=== PATIENT | male | born 1985 | race Caucasian/White ===

== ENCOUNTER 2016-11-27 12:11 | Outpatient (CLI) | payer OTHER | END 2016-11-27 12:12 | disposition home or self-care (01) | DX: M51.37 Other intervertebral disc degeneration, lumbosacral region (principal); M51.27 Other intervertebral disc displacement, lumbosacral region; M47.894 Other spondylosis, thoracic region; M47.896 Other spondylosis, lumbar region; M47.897 Other spondylosis, lumbosacral region ==

== ENCOUNTER 2017-05-23 15:07 | Emergency (ER) | payer OTHER ==
[2017-05-23 15:54] VITALS: BP 128/83
[2017-05-23] MEDS ORDERED: PROPARACAINE 0.5% OPHTH DROPS 15 ML ONE ×3 (16:58→21:39)
[2017-05-23] MEDS ORDERED: ERYTHROMYCIN OPHTH OINT 1 GM TUBE RIGHTEYE STA (17:10)
--- NOTE | 2017-05-23 17:13 | ED Physician Documentation ---
PD HPI HEENT FB - Chief complaint Chief Complaint: Heent - History obtained from History obtained from: Patient - History of Present Illness Timing - onset: Other (He was working under his car and he felt probably a metallic foreign body in the right eye in his having light sensitivity now. He does not have any health problems. He does not wear contacts.) Review of Systems Constitutional: denies: Fever, Chills Eyes: reports: Loss of vision, Decreased vision, Photophobia, Discharge, Irritation Ears: denies: Loss of hearing, Ear pain PD PAST MEDICAL HISTORY - Past Medical History Past Medical History: No - Past Surgical History Past Surgical History: Yes Ortho: Knee replacement - Present Medications Home Medications: Ambulatory Orders Medication Instructions Recorded Confirmed Erythromycin Base [Erythromycin] 1 applic OP 5XD 7 Days oint...g. 05/23/17 Ibuprofen 800 mg PO TID 05/23/17 05/23/17 - Allergies Allergies/Adverse Reactions: Allergies Allergy/AdvReac Type Severity Reaction Status Date / Time No Known Drug Allergies Allergy Verified 05/23/17 15:54 - Social History Does the pt smoke?: Yes Smoking Status: Current every day smoker Does the pt drink ETOH?: Yes ETOH Use: Wine, Beer, Liquor Does the pt have substance abuse?: No - Immunizations Immunizations are current?: Yes - POLST Patient has POLST: No PD ED PE NORMAL - Vitals Vital signs reviewed: Yes - General General: Alert and oriented X 3, No acute distress - HEENT HEENT: PERRL, EOMI, Other (Under the top lid there was a metallic foreign body that was easily removed during examination, on fluorescein examination there was a "skating rink" type pattern of scratches on the superior part of the cornea.) - Neuro Neuro: Alert and oriented X 3, Normal speech - Psych Psych: Normal mood, Normal affect Results - Vitals Vitals: Vital Signs - 24 hr 05/23/17 15:51 Temperature 37.0 C Heart Rate 82 Respiratory 15 Rate Blood Pressure 128/83 H O2 Saturation 97 Oxygen O2 Source Room air Departure - Departure Disposition: 01 Home, Self Care Clinical Impression: Foreign body in conjunctival sac, right eye, initial encounter Corneal abrasion, right Qualifiers: Encounter type: initial encounter Qualified Code(s): S05.01XA - Injury of conjunctiva and corneal abrasion without foreign body, right eye, initial encounter Condition: Good Record reviewed to determine appropriate education?: Yes Instructions: ED Eye Injury Corneal Abrasion Prescriptions: Erythromycin Base [Erythromycin] 1 applic OP 5XD 7 Days oint...g. Comments: Your blood pressure was elevated today on check into the emergency department. This does not mean that you have hypertension, it is a common phenomenon to come to the emergency department and have elevated blood pressure. I recommend that she see your primary care physician within the week to have it rechecked when you are feeling better. Follow-up with your eye doctor in 3 days for recheck.
[2017-05-23] MEDS ORDERED: ERYTHROMYCIN OPHTH OINT 1 GM TUBE ONE (17:19)
== END 2017-05-23 17:17 | disposition home or self-care (01) ==
LOC: ED 15:07
DX: T15.11XA Foreign body in conjunctival sac, right eye, initial encounter (principal); X58.XXXA Exposure to other specified factors, initial encounter; R03.0 Elevated blood-pressure reading, without diagnosis of hypertension; F17.200 Nicotine dependence, unspecified, uncomplicated
CPT/HCPCS: 65205; 99283; J3490

== ENCOUNTER 2017-05-23 19:08 | Emergency (ER) | payer OTHER ==
[2017-05-23 21:20] VITALS: BP 159/105
--- NOTE | 2017-05-23 21:28 | ED Physician Documentation ---
PD HPI OPHTHO - Stated complaint Stated Complaint: RT EYE PX - Chief complaint Chief Complaint: General - History obtained from History obtained from: Patient - History of Present Illness Timing - onset: Today Timing - details: Abrupt onset, Still present, Waxing and waning Location: Left Quality / character: Aching, Sharp Associated symptoms: Redness, Swelling. No: Photophobia, Double vision Contributing factors: FB Review of Systems Eyes: denies: Loss of vision, Decreased vision, Photophobia PD PAST MEDICAL HISTORY - Past Medical History Cardiovascular: None Respiratory: None Neuro: None Endocrine/Autoimmune: None - Past Surgical History Past Surgical History: Yes Ortho: Knee replacement - Present Medications Home Medications: Ambulatory Orders Medication Instructions Recorded Confirmed Erythromycin Base [Erythromycin] 1 applic OP 5XD 7 Days oint...g. 05/23/17 Ibuprofen 800 mg PO TID 05/23/17 05/23/17 - Allergies Allergies/Adverse Reactions: Allergies Allergy/AdvReac Type Severity Reaction Status Date / Time No Known Drug Allergies Allergy Verified 05/23/17 15:54 - Social History Does the pt smoke?: Yes Smoking Status: Current every day smoker Does the pt drink ETOH?: Yes Does the pt have substance abuse?: No - Family History Family history: reports: None - Immunizations Immunizations are current?: Yes - POLST Patient has POLST: No PD ED PE NORMAL - Vitals Vital signs reviewed: Yes - General General: Alert and oriented X 3, No acute distress, Well developed/nourished - HEENT HEENT: PERRL, EOMI PD ED PE EXPANDED - Eyes Eyes: Right eye, Injected conj/sclera. No: Eyelid injury, Eyelid swelling, Conj /sclera FB, Corneal FB Results - Vitals Vitals: Oxygen O2 Source Room air PD MEDICAL DECISION MAKING - ED course Complexity details: reviewed old records (from just earlier today), considered differential (no residual FB seen. Appears to have been removed earlier and just abrasion left. Eye drops help. We discussed latest studies out showing short term use numbing meds are safe and okay if used briefly and with eye protection/treatment. ALso talked about co), d/w patient Departure - Departure Disposition: 01 Home, Self Care Clinical Impression: Corneal abrasion, right Qualifiers: Encounter type: subsequent encounter Qualified Code(s): S05.01XD - Injury of conjunctiva and corneal abrasion without foreign body, right eye, subsequent encounter Condition: Stable Record reviewed to determine appropriate education?: Yes Comments: Continue the prior instructions for the corneal abrasion. Continue the prior antibiotic ointment 3 or 4 times a day. I do not see any more foreign body in the eye at this time. Presume the corneal abrasion is really hurting still. You can use of proparacaine numbing eyedrops as needed for eye discomfort. Do not use them beyond 1-1-1/2 days because if it is still hurting that that point he need to have it rechecked for concern of not healing well. Return sooner for worse despite that. Discharge Date/Time: 05/23/17 21:54
[2017-05-23] MEDS ORDERED: PROPARACAINE 0.5% OPHTH DROPS 15 ML EACHEYE STA (21:29)
== END 2017-05-23 21:54 | disposition home or self-care (01) ==
LOC: ED 19:08
DX: S05.01XA Injury of conjunctiva and corneal abrasion without foreign body, right eye, initial encounter (principal); T15.11XA Foreign body in conjunctival sac, right eye, initial encounter; X58.XXXA Exposure to other specified factors, initial encounter; R03.0 Elevated blood-pressure reading, without diagnosis of hypertension; F17.200 Nicotine dependence, unspecified, uncomplicated
CPT/HCPCS: 65205; 99283; J3490

== ENCOUNTER 2020-11-17 19:55 | Emergency (ER) | payer OTHER ==
[2020-11-17] MEDS ORDERED: oxyCODONE 5 MG TABLET PO STA (20:31)
--- NOTE | 2020-11-17 21:04 | ED Physician Documentation ---
History of Present Illness - Stated complaint Stated Complaint: LT SHOULDER PX - Chief complaint Chief Complaint: Trauma Ext - History obtained from History obtained from: Patient - History of Present Illness Timing: How many hours ago (1) Pain level max: 9 Pain level now: 9 - Additonal information Additional information: 35-year-old male was on a motorized skateboard today when he fell off, landing on the left shoulder and striking the left side of his head on the pavement. No loss of consciousness. No nausea or vomiting. Worse with movement, better with rest. No neck or back pain. Most of the pain is over the left clavicle. Patient is left-handed Review of Systems Ten Systems: 10 systems reviewed and negative Constitutional: denies: Fever, Chills Respiratory: denies: Cough GI: denies: Abdominal Pain, Vomiting, Diarrhea Skin: denies: Rash Musculoskeletal: denies: Neck pain, Back pain Neurologic: denies: Headache PD PAST MEDICAL HISTORY - Past Medical History Cardiovascular: None Respiratory: None Endocrine/Autoimmune: None - Past Surgical History Past Surgical History: Yes Ortho: Knee replacement - Present Medications Home Medications: Ambulatory Orders Medication Instructions Recorded Confirmed Erythromycin Base [Erythromycin] 1 applic OP 5XD 7 Days oint...g. 05/23/17 Ibuprofen 800 mg PO TID 05/23/17 05/23/17 Oxycodone HCl/Acetaminophen 1 - 2 each PO Q6H PRN #14 tablet 11/17/20 [Percocet 5-325 mg Tablet] - Allergies Allergies/Adverse Reactions: Allergies Allergy/AdvReac Type Severity Reaction Status Date / Time No Known Drug Allergies Allergy Verified 11/17/20 20:01 - Social History Does the pt smoke?: Yes Smoking Status: Current every day smoker Does the pt drink ETOH?: Yes Does the pt have substance abuse?: No - Immunizations Immunizations are current?: Yes - POLST Patient has POLST: No PD ED PE NORMAL - Vitals Vital signs reviewed: Yes - General General: Alert and oriented X 3, No acute distress - HEENT HEENT: Moist mucous membranes, Other (Small abrasion and hematoma to the left parietal area. Tenderness to palpation. No palpable fracture) - Neck Neck: Supple, no meningeal sign, No bony TTP - Cardiac Cardiac: RRR, Strong equal pulses - Respiratory Respiratory: No respiratory distress, Clear bilaterally - Abdomen Abdomen: Soft, Non tender, Non distended - Back Back: No spinal TTP - Derm Derm: Warm and dry - Extremities Extremities: Other (Slight abrasion to the left shoulder. Mild tenderness over the glenohumeral joint. Deformity to the midshaft clavicle with palpable fracture. Neurovascular intact including the axillary nerve) - Neuro Neuro: Alert and oriented X 3 Results - Vitals Vitals: Vital Signs - 24 hr 11/17/20 11/17/20 11/17/20 20:01 20:41 21:55 Temperature 36.6 C 36.6 C 37.4 C Heart Rate 94 94 122 H Respiratory 16 16 18 Rate Blood Pressure 145/90 H 145/90 H 145/98 H O2 Saturation 98 98 95 Oxygen O2 Source Room air - Rads (name of study) CT head Radiology: Prelim report reviewed, EMP read contemporaneously, See rad report (no acute abnormality) L clavicle fracture Radiology: Prelim report reviewed, EMP read contemporaneously, See rad report (Acute comminuted and displaced mid to distal left clavicular shaft fracture as above. ) L shoulder xray Radiology: Prelim report reviewed, EMP read contemporaneously, See rad report (Acute comminuted and displaced mid to distal left clavicular shaft fracture as above. ) PD MEDICAL DECISION MAKING - ED course Complexity details: reviewed results, re-evaluated patient, considered differential, d/w patient ED course: Patient with a left midshaft clavicular fracture. Placed in a sling. Pain well controlled. Neurovascular intact including the axillary nerve. No acute findings on head CT or shoulder x-ray. Patient counseled regarding signs and symptoms for which I believe and urgent re-evaluation would be necessary. Patient with good understanding of and agreement to plan and is comfortable going home at this time This document was made in part using voice recognition software. While efforts are made to proofread this document, sound alike and grammatical errors may occur. Departure - Departure Disposition: 01 Home, Self Care Clinical Impression: Closed left clavicular fracture Qualifiers: Encounter type: initial encounter Clavicle location: shaft Fracture alignment: displaced Qualified Code(s): S42.022A - Displaced fracture of shaft of left cla vicle, initial encounter for closed fracture Condition: Good Instructions: ED Fx Clavicle Follow-Up: your,doctor in 3 days [Other] Prescriptions: Oxycodone HCl/Acetaminophen [Percocet 5-325 mg Tablet] 1 - 2 each PO Q6H PRN #14 tablet PRN Reason: pain Comments[place]. [place] Return if you worsen. Continue to stay in the sling to help with the pain and healing until released by your doctor. Do not drink alcohol or drive while on narcotic pain medicine. Note that many narcotic pain relievers also contain tylenol/acetaminophen. Please ensure that your total dose of acetaminophen from all sources does not exceed 3 grams (3000mg) per day. You may constipated on this medication, take a stool softener such as "Colace" twice a day while you are on it. Also recommend a [id number]-bos-[id number] laxative such as senna or MiraLAX any day that you do not have a bowel movement. If you received narcotic pain medication in the emergency department, do not drive or operate machinery for the next 24 hours. Acute depressed left mid to distal clavicular shaft fracture as above. Discharge Date/Time: 11/17/20 21:57
--- NOTE | 2020-11-17 21:06 | XRAY Report ---
PROCEDURE: Clavicle LT INDICATIONS: fall, clavicle pain TECHNIQUE: 2 views of the clavicle were acquired. COMPARISON: None. FINDINGS: Bones: Acute fracture involving mid to distal left clavicular shaft is seen with up to 1.6 cm depress ion and up to 4.1 cm overlapping at fracture site.. No suspicious bony lesions. Soft tissues: No suspicious soft tissue calcifications. IMPRESSION: Acute depressed left mid to distal clavicular shaft fracture as above. Reviewed by: Shawn Weaver MD on 11/17/2020 9:04 PM PDT Approved by: Shawn Weaver MD on 11/17/2020 9:04 PM PDT Station ID: [id number]
--- NOTE | 2020-11-17 21:06 | XRAY Report ---
PROCEDURE: Shoulder 3 View LT INDICATIONS: fall, shoulder pain TECHNIQUE: 3 views of the shoulder were acquired. COMPARISON: None. FINDINGS: Bones: Acute comminuted mid to distal left clavicular shaft fracture is seen with depression and over lapping at clavicular shaft fracture site. No other fracture or dislocation is seen. No suspicious maxx ny lesions. Visualized ribs appear intact. Soft tissues: No suspicious soft tissue calcifications. IMPRESSION: Acute comminuted and displaced mid to distal left clavicular shaft fracture as above. Reviewed by: Shawn Weaver MD on 11/17/2020 9:05 PM PDT Approved by: Shawn Weaver MD on 11/17/2020 9:05 PM PDT Station ID: [id number]
[2020-11-17 21:56] VITALS: BP 145/98
--- NOTE | 2020-11-18 08:13 | CT Report ---
PROCEDURE: HEAD WO INDICATIONS: fall, L parietal head injury TECHNIQUE: Noncontrast 4.5 mm thick angled axial sections acquired from the foramen magnum to the vertex. For r adiation dose reduction, the following was used: automated exposure control, adjustment of mA and/or kV according to patient size. COMPARISON: None. FINDINGS: Image quality: Excellent. CSF spaces: Basal cisterns are patent. No extra-axial fluid collections. Ventricles are normal in size and shape. Brain: No midline shift. No intracranial masses or hemorrhage. Castro-white matter interface is norm al. Skull and face: Calvarium and visualized facial bones are intact, without suspicious lesions. Sinuses: Visualized sinuses and mastoids are clear. IMPRESSION: No CT evidence of acute intracranial pathology. No acute skull fracture. Reviewed by: Shawn Weaver MD on 11/18/2020 8:12 AM PDT Approved by: Shawn Weaver MD on 11/18/2020 8:12 AM PDT Station ID: [id number]
== END 2020-11-17 21:57 | disposition home or self-care (01) ==
LOC: ED 19:55
DX: S42.022A Displaced fracture of shaft of left clavicle, initial encounter for closed fracture (principal); S00.03XA Contusion of scalp, initial encounter; S00.01XA Abrasion of scalp, initial encounter; S40.212A Abrasion of left shoulder, initial encounter; V00.131A Fall from skateboard, initial encounter; Y93.51 Activity, roller skating (inline) and skateboarding; F17.200 Nicotine dependence, unspecified, uncomplicated
CPT/HCPCS: 70450; 73000; 73030; 99284; A9270

== ENCOUNTER 2021-11-04 14:02 | Outpatient (CLI) | payer OTHER ==
[2021-11-04 14:58] VITALS: BP 129/78
--- NOTE | 2021-11-04 14:58 | SLEEP CARE CONSULTATION ---
Information from patient questionnaire entered by Darshana Benito MA. I have reviewed and concur with the information entered by Darshana Benito MA. This document represents the service I personally performed and the decisions made by me, Whit Fontanez ARNP. History of Present Illness Service Date and Time: 11/04/2021 1402 Reason for Visit: New patient (ONSET 08/2012. NO PRIORS) Chief Complaint: reports: Unrefreshed sleep, Snoring, Excessive daytime sleepiness, Observed pauses in breathing, Fatigue, Frequent awakenings at night, Other Date of Onset: 6-10 YEARS Usual bedtime: changing to cable splicer in last couple days Time it takes to fall asleep: 1-2 HOURS Snores at night: Yes Observed to quit breathing while asleep: Yes Number of times waking at night: 2-3 Reasons for waking at night: reports: Bathroom, Other (unknown reasons; jerking awake). denies: Choking, Snoring, Gasping for air Toss, Turn, or Twitch while sleeping: Yes Recalls having dreams: Yes Usually gets out of bed at: 11-12 pm Feels refreshed in the morning: No Morning headache: Yes (1-2 days a week; due to dehydration, goes away with water) Sleepy or fatigued during the day: Yes Ever fallen asleep while driving: Yes (drowsy driving, no accidents; not often) Takes day naps: Yes (weekend kait) Dreams during day naps: No Prior sleep studies: No Additional HPI information: I had the pleasure of seeing JACI CUENCA today regarding the possibility of him having a sleep disorder. His current complaints are excessive daytime sleepiness, fatigue, frequent night awakenings, observed pause in breathing, snoring and unrefreshed sleep. He states he has difficulty getting to sleep. His sleeping partners have told him he snore loudly and frequently. He has also been told that he stops breathing. On days he was going to bed at 9 pm and getting up at 0500. Now just changed to nights where he gets up between 11- 12 pm and goes to sleep around [id number] in the morning. He is still getting used to new schedule. He will wake up several times during sleep for unknown reasons, he will just jolt awake. He states he gets really tired during the day and will nod when sitting at a computer. He states he sleeps with his TV on in his room. This is something he has done for many years since he joined the [employer] and he just uses it for white noise comfort while sleeping. - Parasomnia Symptoms Ever been unable to move upon waking from sleep: Yes (not often; handful of times in past 5 years) Walks in sleep: No Talks in sleep: No Ever acted out dreams in sleep: No Ever felt weak in the knees when startled or emotional: No Bothered by creepy, crawly, restless sensations in legs: Yes (fidgiting in bed) Problems with memory or concentration: Yes (both) Subjective Initial [place] Sleepiness Scale score: 15 (10/2021) Past Medical History Past Medical History: reports: Depression Social History The patient's occupation is a [employer]. Patient is Single and lives in . Have you smoked in the past 12 months: Yes (use smokeless tobacco) Cigarettes per day (20/pack): 20 Years of smokin Quit date: 2017 Smoking Pack Years: 15.0 Alcohol use: No Caffeine use: Yes Caffeine amount and frequency: 1-2 X DAILY Family History Family history of sleep disordered breathing: Yes Family Hx Sleep Apnea: Mother: Snoring, Sleep apnea - Untreated, Father: Snoring, Sleep apnea - Treated Allergies and Home Medications Known drug allergies: No Drug allergies reviewed: Yes Home medication list reviewed: Yes Allergy and home medication list: Allergies No Known Drug Allergies Allergy (Verified 11/17/20 20:01) Medications: Ibuprofen, prn Prozac 20 mg daily Review of Systems Weight gain over past 5 years: 30-40 lbs Cardiovascular: denies: high blood pressure Respiratory: reports: sputum production Gastrointestinal: reports: heartburn, diarrhea Urinary: reports: incontinence Neurological: reports: headaches, head trauma (when child) Psychiatric: reports: depression Ear/Nose/Throat: reports: nasal congestion, dry mouth/throat, wisdom teeth removed. denies: tonsillectomy Endocrine: reports: sluggishness Musculoskeletal: reports: joint pain, back pain, muscle pain or cramping Immunologic: reports: sneezing, rash, itching Physical Exam Vital signs obtained and entered by: Eloise BENITO CMA AAVIDAL Blood Pressure: 129/78 (PULSE 89, RESP 18, LEFT) Cuff size: wrist Heart Rate: 86 O2 Saturation: 96 (CLOTH) Height: 5 ft 10 in Weight: 240 lb (PT CLOTHES) Body Mass Index: 34.4 BMI Classification: Obese Neck circumference: 18 (INCHES) Mouth and throat: narrow oropharynx Soft palate: long Hard palate: normal Uvula: normal Uvula visualization: 50% Mallampati Class II Tongue: enlarged in size with teeth watters on lateral edges Tonsils: 1+ Neck: normal w/o lymphadenopathy or thyromegaly Heart: regular rate and rhythm Lungs: clear bilaterally Impression and Plan 1. Suspected Obstructive Sleep Apnea-Hypopnea Syndrome, as suggested by a history of loud and irregular snoring, observed cessation of breath while asleep, morning headache, frequent awakening during the night, unrefreshed sleep, cognitive impairment, and excessive daytime sleepiness. Narrow oropharynx and obesity are common predisposing factors for obstructive sleep apnea-hypopnea syndrome. I recommend proceeding to polysomnography to confirm the diagnosis and to assess severity. If the patient has significant sleep disordered breathing, a manual CPAP titration study will also be performed to find the optimal treatment pressure. I informed the patient of what the sleep studies involve and after some discussion, obtained agreement to proceed. The pathophysiology of obstructive sleep apnea-hypopnea syndrome was discussed with the patient and health risks of cardiovascular and cerebrovascular disease if not treated. Risks of drowsy driving discussed in detail and patient advised to avoid long distance driving and to stain remover at the first sign of drowsiness. Patient agreed to plan. * Schedule polysomnography +- manual CPAP titration study and return in 1-2 weeks after the study to discuss results. * Avoid long distance driving or driving when feeling sleepy. * Avoid alcohol, sedative and muscle relaxant around bedtime. * Attempt to lose weight. * Review instructions provided by trained office staff on how to prepare for the sleep study. * Return for follow-up after sleep study completed. Counseling Topics: Weight loss health impact Visit Type: In Office Time Spent with Patient (minutes): 32 Provider Statement: I spent 100% of the Face to Face Visit with the patient with greater than 50% spent counseling the patient and coordination of care.
== END 2021-11-04 14:03 | disposition home or self-care (01) ==
LOC: SC 14:02
PROVIDERS: ATTEND Nurse Practitioner Family
DX: R06.83 Snoring (principal); G47.8 Other sleep disorders; R06.81 Apnea, not elsewhere classified; R51.9 Headache, unspecified; G47.10 Hypersomnia, unspecified; R53.83 Other fatigue; F32.A Depression, unspecified; E66.9 Obesity, unspecified; Z68.34 Body mass index [BMI] 34.0-34.9, adult; Z87.891 Personal history of nicotine dependence
CPT/HCPCS: 99203; 99212

== ENCOUNTER 2021-12-03 06:49 | Outpatient (CLI) | payer OTHER | END 2021-12-03 06:50 | disposition home or self-care (01) | LOC: SC 06:49 | PROVIDERS: ATTEND Nurse Practitioner Family | DX: G47.33 Obstructive sleep apnea (adult) (pediatric) (principal) | CPT/HCPCS: 95810 ==

== ENCOUNTER 2021-12-22 12:49 | Outpatient (CLI) | payer OTHER ==
[2021-12-22 13:36] VITALS: BP 127/79
--- NOTE | 2021-12-22 13:36 | SLEEP CARE CONSULTATION ---
Information from patient questionnaire entered by Darshana Ordaz MA. I have reviewed and concur with the information entered by Darshana Ordaz MA. This document represents the service I personally performed and the decisions made by , Whit Fontanez ARNP. History of Present Illness Service Date and Time: 12/22/2021 1249 Initial Silver Sleepiness Scale score: 15 (10/2021) Current Silver Sleepiness Scale score: 20 (12/2021) Additional HPI information: JACI CUENCA returns for follow up and results of the recently performed polysomnography. I explained the pathophysiology behind obstructive sleep apnea. We then spent quite a bit of time discussing different treatment options. For mild obstructive sleep apnea, surgery and oral appliance are alternatives to nasal CPAP therapy but in moderate or severe cases, nasal CPAP is the most effective and reliable treatment. Because apnea is primarily in supine position, then positional management therapy could be effective. Methods discussed such as positioning with pillows to prevent supine sleep. I reviewed the impact of weight changes on sleep apnea and strongly recommended losing weight. After some discussion, the patient opted to go with the nasal CPAP therapy. Nasal autoCPAP set at 4-15 cmH20 will be ordered with rationale explained. A manual titration study will be ordered if unable to find optimal pressure with office adjustments. I explained how CPAP machine works and what to expect when using the machine. Using CPAP every night in order to get used to it was emphasized. Patient advised to put CPAP mask on before getting into bed so as not to fall asleep without CPAP. To assist acclimation to CPAP use, it could also be used for a short time during day while reading or watching TV. The patient was instructed to call the CPAP supplier to discuss any mechanical problem that may occur. If the mask given is uncomfortable or is difficult to keep on through the night even with adjustment, contact the CPAP supplier as many will replace with another mask style if notified before 30 days. If snoring or perceives is not getting enough air or too much air from the machine, notify this office. Patient does not drink alcohol. Patient was cautioned about risks of drowsy driving until sleepiness symptoms resolve. Patient denies drowsy driving. Sleep Study - Results Type of Sleep Study: Polysomnography (F/U POLY, 12/03/21 [facility],) Prior sleep studies: No Polysomnography/Home Sleep Study results: IMPRESSION: The quality of the study is good. The patient had normal sleep efficiency. The sleep architecture was normal. Respiratory monitoring showed mild obstructive sleep apnea-hypopnea (AHI = 8.8) associated with oxyhemoglobin desaturation and moderate hypoxia (jak oxygen saturation of 75%) . Baseline oxygen saturation was also low at 89 90%. The respiratory events occurred mainly during REM sleep. The patient slept minimally in supine position (supine AHI = 27.5; non-supine = 8.24). Snore was moderate to loud in intensity. There was no significant periodic leg movement of sleep. Cardiac rhythm was normal sinus rhythm without significant arrhythmia. No abnormal behavior (parasomnia) observed during the night. Allergies and Home Medications Home medication list reviewed: Yes (Prozac 20 mg daily; Ibuprofen 800 mg prn) Allergy and home medication list: Allergies No Known Drug Allergies Allergy (Verified 11/17/20 20:01) Review of Systems Review of systems same as previous: Yes (no changes (L clavicle surgery November 2020)) Physical Exam Vital signs obtained and entered by: JOHNNY GIRALDO Blood Pressure: 127/79 (RIGHT, PULSE 75, RESP 18, ) Cuff size: wrist Heart Rate: 77 O2 Saturation: 96 (PAPER MASK) Height: 5 ft 10 in Weight: 240 lb (PT CLOTHES PER PT) Body Mass Index: 34.4 BMI Classification: Obese Impression and Plan 1. Obstructive Sleep Apnea-Hypopnea Syndrome, mild, with lowest oxygen saturation of 75%. Obviously this is the cause of the patients symptoms of unrefreshed sleep, and excessive daytime sleepiness. Positive pressure therapy could benefit depression. As mentioned above, the patient will be started on nasal autoCPAP therapy with pressure set at 4-15 cmH2O. Compliance guidelines a lso reviewed. A copy of compliance guidelines will be given for reference at check out. Because the apnea is more severe supine, I instructed to avoid sleeping supine using pillow positioning until able to start CPAP use. 2. Hypoxemia, moderate, his jak oxygen saturation was 75% with 73.6 minutes spent with oxygen saturation under 90%. His baseline oxygen saturation was also low at 89 90%. * Nasal auto CPAP therapy, pressure at 4-15 cm H2O. * Attempt to lose weight. * Avoid alcohol consumption near bedtime. * Avoid supine sleep until using CPAP. * The patient is again cautioned about driving until sleepiness completely resolves. * Return one month after CPAP obtained. I will assess response to therapy and compliance at that time. Counseling Topics: Sleeping position, Weight loss health impact Visit Type: In Office Time Spent with Patient (minutes): 20 Provider Statement: I spent 100% of the Face to Face Visit with the patient with greater than 50% spent counseling the patient and coordination of care.
== END 2021-12-22 12:50 | disposition home or self-care (01) ==
LOC: SC 12:49
PROVIDERS: ATTEND Nurse Practitioner Family
DX: G47.33 Obstructive sleep apnea (adult) (pediatric) (principal); R09.02 Hypoxemia; E66.9 Obesity, unspecified; Z68.34 Body mass index [BMI] 34.0-34.9, adult
CPT/HCPCS: 99212; 99213